=== PATIENT | female | born 1960 | race Caucasian/White ===

== ENCOUNTER 2018-11-30 07:56 | Day surgery (SDC) | payer MEDICAID ==
[2018-11-23 15:20] LABS: BASOPHILS % (AUTO) 0.5 % (0-1); EOSINOPHILS # (AUTO) 0.2 X10'3 (0-0.9); EOSINOPHILS % (AUTO) 2.6 % (0-6); LYMPHOCYTES # (AUTO) 1.9 X10'3 (1.1-4.8); LYMPHOCYTES % (AUTO) 27.7 % (21-51); MEAN CORPUSCULAR HEMOGLOBIN 30.6 PG (27.0-31.0); MEAN CORPUSCULAR HGB CONC 33.3 % (33.0-36.5); MEAN CORPUSCULAR VOLUME 91.7 FL (78-98); MEAN PLATELET VOLUME 12.1 FL (7.4-10.4); MONOCYTES # (AUTO) 0.5 X10'3 (0-0.9); MONOCYTES % (AUTO) 7.2 % (2-12); NEUTROPHILS # (AUTO) 4.4 X10'3 (1.8-7.7); PRE OP HEMATOCRIT 44.8 % (35.0-45.0); PRE OP HEMOGLOBIN 14.9 g/dL (12.0-16.0); PRE OP PLATELET COUNT 180 X10'3 (140-440); RED BLOOD COUNT 4.89 X10'6 (4.20-5.60); RED CELL DISTRIBUTION WIDTH 11.9 % (11.5-14.5)
[2018-11-23 15:38] LABS: ALBUMIN 3.8 G/DL (3.4-5.0); ALBUMIN/GLOBULIN RATIO 0.9 (1.1-1.5); ALKALINE PHOSPHATASE 114 IU/L (46-116); BLOOD UREA NITROGEN 15 MG/DL (7-18); BUN/CREATININE RATIO 18.3 (6.6-38.0); CALCIUM 9.2 MG/DL (8.5-10.1); CHLORIDE 103 MMOL/L (99-107); CREATININE 0.82 MG/DL (0.40-0.90); PRE OP ALT 38 U/L (30-65); PRE OP ANION GAP 8 (8-16); PRE OP AST 30 U/L (10-37); PRE OP BILIRUB, TOTAL 0.4 MG/DL (0.0-1.0); PRE OP GLUCOSE 117 MG/DL (70-104); PRE OP POTASSIUM 3.6 MMOL/L (3.4-5.1); PRE OP SODIUM 140 MMOL/L (135-145); TOTAL CARBON DIOXIDE 28.7 MMOL/L (24-32); TOTAL PROTEIN 7.9 G/DL (6.4-8.2); eGFR 72 ML/MIN
[~2018-11-30] VITALS: Ht 162.6 cm; Wt 86.1 kg
[2018-11-30] VITALS (8 sets, daily range): BP systolic 115–128; BP diastolic 70–74
[~2018-11-30 07:56] MED LIST: LEVO137T2 PO; LORA10TA7 PO; MOME13HF INH; MONT10TA24 PO; OMEP-50 PO; clindamycin 600mg/D5W 50ml 50 ML IV ONE; famotidine 20mg tablet PO ONE; ringers solution, lacted 1,000 ML IV SCH
[2018-11-30] MEDS ORDERED: meperidine/PF 25mg/ml syringe IV PRN ×3 (10:40)
[2018-11-30] MEDS ORDERED: morphine 4 MG/ML inj SYRINge IV PRN ×2 (10:40)
[2018-11-30] MEDS ORDERED: ringers solution, lacted 1,000 ML IV SCH (10:40)
[2018-11-30] MEDS ORDERED: proCHLORperazine 10 MG/2 ml inj IV PRN (10:40)
[2018-11-30] MEDS ORDERED: ondansetron/PF 4mg/2ml inj IV PRN (10:40)
[2018-11-30] MEDS ORDERED: BUPIVAcaine/PF 2.5mg/ml (0.25%) 10ml vial ONE (10:52)
[2018-11-30] MEDS ORDERED: LIDOcaine 0.5% (5mg/ml) 50ml vial ONE (11:00)
[2018-11-30] MEDS ORDERED: fentaNYL/PF 50MCG/1 ML 2ML syringe ONE (11:03)
[2018-11-30] MEDS ORDERED: MIDAZolam 5mg/5ml vial ONE (11:03)
--- NOTE | 2018-11-30 12:23 | NUR ---
Received from OR via [facility], accompanied by Anesthesiologist DR MITCHELL and report given by Anesthesiologist. LEFT HAND W/DRSG AND ANNALISA WRAP COVERING CDI, PT ABLE TO WIGGLE FINGERS, FINGERS PWD, FIRESETTER 2-3 SECONDS. Addendum: 11/30/18 at 1244 by Doretha Jo RN Amended: Links added.
== END 2018-11-30 13:23 | disposition home or self-care (01) ==
LOC: PAS 07:56
PROVIDERS: ATTEND Orthopaedic Surgery Hand Surgery
DX: G56.02 Carpal tunnel syndrome, left upper limb (principal); M67.432 Ganglion, left wrist; M18.12 Unilateral primary osteoarthritis of first carpometacarpal joint, left hand; M17.0 Bilateral primary osteoarthritis of knee; J45.998 Other asthma; K21.9 Gastro-esophageal reflux disease without esophagitis; E11.9 Type 2 diabetes mellitus without complications; E66.9 Obesity, unspecified; Z88.2 Allergy status to sulfonamides; Z90.49 Acquired absence of other specified parts of digestive tract; Z90.710 Acquired absence of both cervix and uterus; Z98.51 Tubal ligation status; Z86.14 Personal history of Methicillin resistant Staphylococcus aureus infection; Z91.018 Allergy to other foods; Z68.32 Body mass index [BMI] 32.0-32.9, adult; Z87.891 Personal history of nicotine dependence; Z87.19 Personal history of other diseases of the digestive system; Z96.651 Presence of right artificial knee joint; Z72.89 Other problems related to lifestyle; Z88.0 Allergy status to penicillin; Z79.891 Long term (current) use of opiate analgesic; Z79.899 Other long term (current) drug therapy; Z98.890 Other specified postprocedural states; Z82.5 Family history of asthma and other chronic lower respiratory diseases; Z82.49 Family history of ischemic heart disease and other diseases of the circulatory system; Z80.9 Family history of malignant neoplasm, unspecified
CPT/HCPCS: 25111; 25310; 25447; 36415; 64721; 80053; 82948; 85025; 93005; A6222; A6449; J2001; J2175; J2250; J3010; J3490; A4615; A7000; J7120

== ENCOUNTER 2022-03-09 16:34 | Emergency (ER) | payer MEDICAID ==
[~2022-03-09] VITALS: Ht 162.6 cm; Wt 74.9 kg
[~2022-03-09 16:34] MED LIST changes: +MONT-40 PO; -MONT10TA24 PO; -OMEP-50 PO; +OMEP20CA16 PO; -clindamycin 600mg/D5W 50ml 50 ML IV ONE; -famotidine 20mg tablet PO ONE; -ringers solution, lacted 1,000 ML IV SCH
[2022-03-09 17:18] VITALS: BP 136/98
[2022-03-09 18:42] LABS: CLARITY,URINE CLEAR (Clear); COLOR,URINE YELLOW (Yellow); GLUCOSE, URINE NEGATIVE (Neg); KETONES,URINE NEGATIVE (Neg); LEUKOCYTE ESTERASE ,URINE SMALL (Neg); NITRITES, URINE NEGATIVE (Neg); OCCULT BLOOD,URINE NEGATIVE (Neg); PROTEIN,URINE NEGATIVE (Neg); UROBILINOGEN,URINE 0.2 E.U/dL (0.2-1.0)
[2022-03-09 18:46] LABS: UA COLLECTION TYPE CLN CATCH MIDSTREAM
[2022-03-09 18:49] LABS: BACTERIA,URINE FEW /HPF (Neg)
[2022-03-09 18:50] LABS: MUCUS STRANDS FEW /LPF (Neg); SQUAMOUS EPITHELIAL CELL,UR FEW /LPF (FEW)
[2022-03-10] MEDS ORDERED: CEPH250T PO (10:39)
== END 2022-03-09 20:12 | disposition left against medical advice (07) ==
LOC: ER 16:35
DX: N39.0 Urinary tract infection, site not specified (principal); Z53.21 Procedure and treatment not carried out due to patient leaving prior to being seen by health care provider
CPT/HCPCS: 81001

== ENCOUNTER 2022-03-10 10:04 | Emergency (ER) | payer MEDICAID ==
[~2022-03-10] VITALS: Ht 162.6 cm; Wt 74.5 kg
[2022-03-10 10:10] VITALS: BP 129/54
[2022-03-10] MEDS ORDERED: CEPH250T PO (10:39)
[2022-03-10 10:45] LABS: CLARITY,URINE CLEAR (Clear); COLOR,URINE YELLOW (Yellow); GLUCOSE, URINE NEGATIVE (Neg); KETONES,URINE NEGATIVE (Neg); LEUKOCYTE ESTERASE ,URINE TRACE (Neg); NITRITES, URINE NEGATIVE (Neg); OCCULT BLOOD,URINE NEGATIVE (Neg); PROTEIN,URINE NEGATIVE (Neg); UROBILINOGEN,URINE 0.2 E.U/dL (0.2-1.0)
[2022-03-10 10:51] LABS: UA COLLECTION TYPE CLN CATCH MIDSTREAM
[2022-03-10 10:55] LABS: RBC,URINE NONE SEEN /HPF (0-2)
--- NOTE | 2022-03-10 10:55 | NUR ---
UA REJECTED FOR CULTURE.
[2022-03-10 10:56] LABS: BACTERIA,URINE 2+ /HPF (Neg); MUCUS STRANDS MODERATE /LPF (Neg); SQUAMOUS EPITHELIAL CELL,UR MANY /LPF (FEW)
== END 2022-03-10 11:06 | disposition home or self-care (01) ==
LOC: ER 10:04
DX: N39.0 Urinary tract infection, site not specified (principal); K59.00 Constipation, unspecified; R11.2 Nausea with vomiting, unspecified; R10.84 Generalized abdominal pain; R19.7 Diarrhea, unspecified; E78.00 Pure hypercholesterolemia, unspecified; J45.909 Unspecified asthma, uncomplicated; E11.9 Type 2 diabetes mellitus without complications; E03.9 Hypothyroidism, unspecified; Z87.440 Personal history of urinary (tract) infections; Z90.710 Acquired absence of both cervix and uterus; Z98.51 Tubal ligation status; Z98.890 Other specified postprocedural states; Z88.0 Allergy status to penicillin; Z88.2 Allergy status to sulfonamides; Z88.8 Allergy status to other drugs, medicaments and biological substances; Z79.2 Long term (current) use of antibiotics; Z79.899 Other long term (current) drug therapy
CPT/HCPCS: 81001; 99283

== ENCOUNTER 2023-06-23 08:59 | Emergency (ER) | payer MEDICAID ==
[~2023-06-23] VITALS: Ht 162.6 cm; Wt 74.8 kg
[~2023-06-23 08:59] MED LIST changes: -MOME13HF INH; +MOME13HF11 INH
[2023-06-23 09:02] VITALS: TEMP 98
[2023-06-23 09:19] VITALS: BP 144/66; PULSE 66; RESP 18; O2SAT 96
[2023-06-23] MEDS ORDERED: Z PACK BC (09:47)
== END 2023-06-23 09:58 | disposition home or self-care (01) ==
LOC: ER 08:59
DX: H66.92 Otitis media, unspecified, left ear (principal); J32.9 Chronic sinusitis, unspecified; E78.00 Pure hypercholesterolemia, unspecified; J45.909 Unspecified asthma, uncomplicated; E11.9 Type 2 diabetes mellitus without complications; Z88.0 Allergy status to penicillin; Z88.2 Allergy status to sulfonamides; Z79.899 Other long term (current) drug therapy; Z90.710 Acquired absence of both cervix and uterus; Z98.890 Other specified postprocedural states
CPT/HCPCS: 99281

== ENCOUNTER 2024-04-18 14:50 | Emergency (ER) | payer MEDICAID ==
[~2024-04-18] VITALS: Ht 162.6 cm; Wt 66.6 kg
[~2024-04-18 14:50] MED LIST changes: +Z PACK BC
[2024-04-18 15:53] VITALS: BP 129/69; PULSE 69; RESP 18; TEMP 98.6; O2SAT 97
[2024-04-18] MEDS ORDERED: MELO-100 PO (16:45)
== END 2024-04-18 17:12 | disposition home or self-care (01) ==
LOC: ER 14:51
DX: S93.401A Sprain of unspecified ligament of right ankle, initial encounter (principal); E78.00 Pure hypercholesterolemia, unspecified; J45.909 Unspecified asthma, uncomplicated; E11.9 Type 2 diabetes mellitus without complications; E05.90 Thyrotoxicosis, unspecified without thyrotoxic crisis or storm; Z90.710 Acquired absence of both cervix and uterus; Z98.51 Tubal ligation status; Z95.1 Presence of aortocoronary bypass graft; Z88.0 Allergy status to penicillin; Z88.2 Allergy status to sulfonamides; Z91.018 Allergy to other foods; Z79.899 Other long term (current) drug therapy; X50.1XXA Overexertion from prolonged static or awkward postures, initial encounter; Y93.89 Activity, other specified; Y92.89 Other specified places as the place of occurrence of the external cause; Y99.8 Other external cause status
CPT/HCPCS: 73590; 73610; 99284; L4360